=== PATIENT | female | born 1945 | race African-American/Black ===

== ENCOUNTER 2020-10-27 12:06 | Emergency (ER) | payer SELFPAY ==
[2020-10-27] VITALS (9 sets, daily range): BP systolic 148–170; BP diastolic 74–94; PULSE 81–91; RESP 18–20; TEMP 37.1–38.7; O2SAT 90–95; BMI 47.9
--- NOTE | 2020-10-27 12:20 | ECG_ITS ---
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 Measurements Intervals [place] Rate: 84 P: 60 WV: 206 QRS: -71 QRSD: 98 T: 62 QT: 342 QTc: 405 Interpretive Statements SINUS RHYTHM LEFT AXIS DEVIATION [QRS AXIS < -30] No previous ECG available for comparison Electronically Signed On 10-27-2020 19:20:47 CDT by Trisha Perkins M.D. [id number]
[2020-10-27 12:32] LABS: Basophils % 0.2 %; Hematocrit 46.9 % (37.0-47.0); Hemoglobin 15.2 g/dL (11.5-15.3); Lymphocytes # 2.5 10^3/uL (0.8-4.8); Lymphocytes % 49.7 %; Mean Corpuscular HGB Conc 32.4 g/dL (30.0-36.0); Mean Corpuscular Hemoglobin 29.6 pg (28.0-34.0); Mean Corpuscular Volume 91.4 fl (81-99); Monocytes # 0.3 10^3/uL (0.2-0.9); Monocytes % 6.6 %; Neutrophils # 2.15 10^3/uL (1.8-7.7); Neutrophils % 43.3 %; Nucleated Red Blood Cells % 0 %; Platelet Count 186 10^3/cmm (130-400); Red Blood Count 5.13 10^6/uL (4.1-5.3); Red Cell Distribution Width 15.4 % (12.1-15.1)
[2020-10-27] MEDS: sodium chloride 0.9% 500 ML IV (13:11)
[2020-10-27] MEDS: acetaminophen 500 mg Tablet PO (13:11)
[2020-10-27 13:18] LABS: Add Urine Microscopic? NO; Charge for UA Resulting for Rev
[2020-10-27 13:24] LABS: Bilirubin Urine 1+ (Negative); Blood Urine Neg (Negative); Glucose Urine UA Norm (Normal); Ketones Urine 2+ (Negative); Leukocyte Esterase Urine Negative (Negative); Nitrate Urine Negative (Negative); Protein Urine Neg (Negative); Urine Appearance Clear (CLEAR); Urine Color Dark Yellow (Yellow); Urobilinogen Urine 1 mg/dL (Negative); pH Urine 6.5 (5-7)
--- NOTE | 2020-10-27 13:27 | CT_ITS ---
WS: [id number] CT LUMBAR SPINE with contrast. HISTORY: Pain, fever and weakness. TECHNIQUE: Contiguous 2.5 mm axial imaging performed from T12 through the mid sacral level. Bone and soft tissue windows reviewed. Sagittal and coronal reformats are submitted and reviewed. Contrast: Visipaque 95 mL IV. DLP: 2971.[address] scans at [facility] use at least one of these dose optimization techniques: automated e xposure control; mA and/or kV adjustment per patient size (includes targeted exams where dose is matc hed to clinical indication); or iterative reconstruction. COMPARISON: None available. Posterior lumbar alignment is normal. No fractures. Hemangioma at L4. L1-L2: Mild disc bulging with no stenosis. L2-L3: Mild disc bulging and ligamentum flavum hypertrophy. No stenosis. L3-L4: Mild central and foraminal stenosis due to ligamentum flavum hypertrophy and disc bulging. L4-L5: Diffuse annular disc bulging with moderate ligamentum flavum hypertrophy and facet arthritis. Mild central and foraminal stenosis. L5-S1: Broad-based disc bulging causing mild contact on the LEFT S1 nerve root and narrowing of the s ubarticular recess. No enhancing soft tissue masses. The uterus is slightly enlarged and bulbous. No free fluid in the pelvis. CT/CT lumbar spine w con [id number] IMPRESSION: 1. No soft tissue masses or enhancement in the lumbar spine. 2. Mild contact on the LEFT S1 nerve root and narrowing of the LEFT L5-S1 suba rticular recess. 3. Mild central and bilateral foraminal stenosis at L3-4 and L4-5.
[2020-10-27 13:48] LABS: Alanine Aminotransferase 32 U/L (0-33); Albumin Level 3.4 g/dL (3.5-5.2); Alkaline Phosphatase 74 IU/L (35-105); Anion Gap 14.4 (5-19); Aspartate Amino Transferase 58 U/L (0-32); Blood Urea Nitrogen 10 mg/dL (8-23); Calcium 8.4 mg/dL (8.5-10.5); Carbon Dioxide 27 mmol/L (22-29); Chloride 98 mmol/L (98-107); Glucose 90 mg/dL (65-115); Lipase 19 U/L (13-60); Osmolality Calculated 281 mOsm/kg (285-295); Potassium 3.4 mmol/L (3.5-5.1); Sodium 136 mmol/L (136-145); Total Bilirubin 0.3 mg/dL (0.15-1.2); Total Protein 7.4 g/dL (6.6-8.7)
--- NOTE | 2020-10-27 13:55 | W.ED.GENADLT ---
HPI - General Adult General: Chief complaint: Fever Stated complaint: DEHYDRATION/ DIZZINESS/ TEMP Time Seen by Provider: 10/27/20 12:07 History of Present Illness: HPI narrative: Patient is a 75-year-old female with exposure to Covid patient who presents the emergency room with concerns of dehydration, cough, not feeling well and polyuria at home x 1 week. Patient tells me she has difficulty controlling her urine. Denies any dysuria. Denies any nausea/vomiting, abdominal complaints, bowel incontinence, melena/hematochezia or diarrhea. Patient has no chest pain shortness breath palpitation. Reports subjective fever at home. Of note, patient reports atraumatic back pain in the lumbar sacral area x1 week. Patient denies any new vaginal discharge, hematuria, groin pain, saddle anesthesia, IV drug use, history of transplant or diabetes. Onset: 1 week ago Duration:1 week Location:home Severity:moderate Review of Systems Narrative: Constitutional: No fever, no chills. HEENT: No vision changes CV: No chest pain, no palpitations PULM: no cough, no dyspnea. GI: No abdominal pain, no N/V/D. : No dysuria, +polyuria MSKEL: No muscle pain SKIN: No new rashes, no lesions. NEURO: No headache, no focal weakness. HEME: No visible bruises PSYCH: Normal mood BACK: +lumbar sacral back pain [facility] ED Female Reproductive History: Date of last menstrual period: 05/08/20 Physical Exam Narrative: EXAM NARRATIVE: Head: Atraumatic Eyes: PERRL, conjunctiva without injection ENT: Mucous membrane moist NECK: Supple, ROM intact LUNGS: LCTAB, no crackles/rhonchi CV: RRR ABDOMEN: Soft, nontender in all quadrants EXTREMITY: Normal ROM, 5/5 strengths in the extremities SKIN: No rash or erythema NEURO: Awake and alert, no focal motor deficits PSYCH: Normal mood and affect : No saddle anethesia BACK: +mild midline tenderness in the sacral area without any fluctance/induration/erythema Course Vital Signs: Vital signs: Vital Signs Temperature 98.8 F 10/27/20 17:13 Pulse Rate 90 10/27/20 17:13 Respiratory Rate 18 10/27/20 17:13 Blood Pressure 148/74 10/27/20 17:13 Pulse Oximetry 94 10/27/20 17:13 MDM - General Adult MDM Narrative: Medical decision making narrative: 75-year-old female with exposure to Covid who presents the emergency room with concerns of dehydration, generalized weakness, cough not feeling well and polyuria at home x1 week. On exam, patient is hemodynamically stable satting well in the emergency room. Patient has no focal findings on exam other than mild tenderness to palpation in the sacral area. Patient has no signs of spinal cord compression. It is unclear what is the source of polyuria. Patient has no history of diabetes. Glucose within normal limit to day. Cr is noted to be mildly elevated 1.1 but was tolerating PO. CT lumbar/sacral spine did not show any signs of acute infection. At the present time, I do not suspect epidural abscess as the patient does not have any bowel symptoms or saddle anesthesia or leg weakness. Covid test positive today. Given the fact the patient tolerated p.o. and continues to satting >95% on RA while sitting and occasionally dip to the 94% with movement, patient will be discharged home for symptomatic evaluation of Covid. We performed a bedside respiratory therapy evaluation to see whether patient qualifies for home oxygen but patient does not. Disposition: Discharge. Come back to the emergency room if your symptoms worsen, have any shortness of breath, fever/chills, dehydration, inability tolerate p.o., any difficulty breathing, or any new or concerning complaints. Lab Data: Labs: Lab Results 10/27/20 10/27/20 10/27/20 Range/Units 10:50 10:50 12:40 WBC 5.0 (4.0-10.0) 10^3/ uL RBC 5.13 (4.1-5.3) 10^6/u L Hgb 15.2 (11.5-15.3) g/dL Hct 46.9 (37.0-47.0) % MCV 91.4 (81-99) fl MCH 29.6 (28.0-34.0) pg MCHC 32.4 (30.0-36.0) g/dL RDW 15.4 H (12.1-15.1) % Plt Count 186 (130-400) 10^3/c mm MPV 10.0 (7.4-10.4) fL Neut % (Auto) 43.3 % Lymph % (Auto) 49.7 % [place] % (Auto) 6.6 % Eos % (Auto) 0.0 % Baso % (Auto) 0.2 % Neut # (Auto) 2.15 (1.8-7.7) 10^3/u L Lymph # (Auto) 2.5 (0.8-4.8) 10^3/u L [place] # (Auto) 0.3 (0.2-0.9) 10^3/u L Eos # (Auto) 0.0 (0.0-0.8) 10^3/u L Baso # (Auto) 0.0 (0.0-0.1) 10^3/u L Nucleated RBC % (a uto) 0 % Nucleated RBCs # 0.0 /100WBC Sodium Cancelled Potassium Cancelled Chloride Cancelled Carbon Dioxide Cancelled Anion Gap Cancelled BUN Cancelled Creatinine Cancelled GFR Calculation Cancelled Glucose Cancelled Calculated Osmolal ity Cancelled Calcium Cancelled Total Bilirubin Cancelled AST Cancelled ALT Cancelled Alkaline Phosphata se Cancelled Total Protein Cancelled Albumin Cancelled Globulin Cancelled Lipase Cancelled Urine Color (Yellow) Urine Appearance (CLEAR) Urine pH (5-7) Ur Specific Gravit y (1.005-1.030) Urine Protein (Negative) Urine Glucose (UA) (Normal) Urine Ketones (Negative) Urine Blood (Negative) Urine Nitrate (Negative) Urine Bilirubin (Negative) Urine Urobilinogen (Negative) mg/dL Ur Leukocyte Renetta ase (Negative) SARS-CoV-2 Ag (Rap id) Positive H (Negative) 10/27/20 10/27/20 Range/Units 13:09 13:14 WBC (4.0-10.0) 10^3/ uL RBC (4.1-5.3) 10^6/u L Hgb (11.5-15.3) g/dL Hct (37.0-47.0) % MCV (81-99) fl MCH (28.0-34.0) pg MCHC (30.0-36.0) g/dL RDW (12.1-15.1) % Plt Count (130-400) 10^3/c mm MPV (7.4-10.4) fL Neut % (Auto) % Lymph % (Auto) % [place] % (Auto) % Eos % (Auto) % Baso % (Auto) % Neut # (Auto) (1.8-7.7) 10^3/u L Lymph # (Auto) (0.8-4.8) 10^3/u L [place] # (Auto) (0.2-0.9) 10^3/u L Eos # (Auto) (0.0-0.8) 10^3/u L Baso # (Auto) (0.0-0.1) 10^3/u L Nucleated RBC % (a uto) % Nucleated RBCs # /100WBC Sodium 136 Potassium 3.4 L Chloride 98 Carbon Dioxide 27 Anion Gap 14.4 BUN 10 Creatinine 1.1 H GFR Calculation Not Reportable Glucose 90 Calculated Osmolal ity 281 L Calcium 8.4 L Total Bilirubin 0.3 AST 58 H ALT 32 Alkaline Phosphata se 74 Total Protein 7.4 Albumin 3.4 L Globulin 4.0 Lipase 19 Urine Color Dark yellow (Yellow) Urine Appearance Clear (CLEAR) Urine pH 6.5 (5-7) Ur Specific Gravit y 1.010 (1.005-1.030) Urine Protein Neg (Negative) Urine Glucose (UA) Norm (Normal) Urine Ketones 2+ H (Negative) Urine Blood Neg (Negative) Urine Nitrate Negative (Negative) Urine Bilirubin 1+ H (Negative) Urine Urobilinogen 1 H (Negative) mg/dL Ur Leukocyte Renetta ase Negative (Negative) SARS-CoV-2 Ag (Rap id) (Negative) Imaging Data^: Other Imaging: Radiologist's impression: [address] [id number] Scan ReportSigned Patient: Tremayne Machado #: [id number]: 7Acct#:[id number]/Sex: 75 / FADM Date: 10/27/20Loc: ERRoom/Bed:Attending Dr: Ordering Provider/Ordering MD: Elba Delatorre MD Date of Service: 10/27/20 Procedure(s): CT lumbar spine w con [id number] Accession Number(s): [id number] Report Number: [id number] WS: [id number] CT LUMBAR SPINE with contrast. HISTORY: Pain, fever and weakness. TECHNIQUE: Contiguous 2.5 mm axial imaging performed from T12 through the mid sacral level. Bone and soft tissue windows reviewed. Sagittal and coronal reformats are submitted and reviewed. Contrast: Visipaque 95 mL IV. DLP: 2971.[address] scans at [facility] use at least one of these dose optimization techniques: automated exposure control; mA and/or kV adjustment per patient size (includes targeted exams where dose is matched to clinical indication); or iterative reconstruction. COMPARISON: None available. Posterior lumbar alignment is normal. No fractures. Hemangioma at L4. L1-L2: Mild disc bulging with no stenosis. L2-L3: Mild disc bulging and ligamentum flavum hypertrophy. No stenosis. L3-L4: Mild central and foraminal stenosis due to ligamentum flavum hypertrophy and disc bulging. L4-L5: Diffuse annular disc bulging with moderate ligamentum flavum hypertrophy and facet arthritis. Mild central and foraminal stenosis. L5-S1: Broad-based disc bulging causing mild contact on the LEFT S1 nerve root and narrowing of the subarticular recess. No enhancing soft tissue masses. The uterus is slightly enlarged and bulbous. No free fluid in the pelvis. CT/CT lumbar spine w con [id number] IMPRESSION: 1. No soft tissue masses or enhancement in the lumbar spine. 2. Mild contact on the LEFT S1 nerve root and narrowing of the LEFT L5-S1 subarticular recess. 3. Mild central and bilateral foraminal stenosis at L3-4 and L4-5. Dictated By:Carin Mcneil DOSigned By:Carin Mcneil DOSigned Date/Time:10/27/20 1502DD/ 1424 [facility] [place] [id number] ReportSigned Patient: Tremayne Machado #: [id number]: 1945cct#:[id number]/Sex: 75 / FADM Date: 10/27/20Loc: ERRoom/Bed:Attending Dr: Ordering Provider/Ordering MD: Elba Delatorre MD Date of Service: 10/27/20 Procedure(s): XR chest 1V portable [id number] Accession Number(s): [id number] Report Number: [id number] WS: [id number] XR chest 1V portable [id number] REASON FOR EXAM: cough, dyspnea FINDINGS: Moderate tortuosity and ectasia of the thoracic aorta without focal aneurysmal dilatation. The heart is mildly enlarged. Calcified granulomatous disease in both hemithoraces. No active pulmonary parenchymal or pleural disease is identified. Significant degenerative spondylosis in the mid and lower thoracic spine. Mild to moderate degenerative change in the shoulder joints. No focal bone lesion. XR/XR chest 1V portable [id number] IMPRESSION: No acute chest abnormality. Dictated By:Dex Hardin Jr MDSigned By:Dex Hardin Jr MDSigned Date/Time:10/27/20 1422DD/ 1420 Discharge Plan Discharge Patient Disposition: Home Clinical Impression: COVID-19, Polyuria, Generalized weakness Condition: Stable Prescriptions: New Zofran 4 mg tablet 4 mg PO TID PRN (Reason: nausea and vomiting) 4 Days Qty: 12 RF: 0 acetaminophen 500 mg tablet 500 mg PO Q6H PRN (Reason: pain) 7 Days Qty: 28 RF: 0 No Action losartan See Rx Instructions .ROUTE .COMPLEX RF: 0 Discharge Orders: Discharge ED (Routine); Ordered 10/27/20 Ordered By: Elba Delatorre Other Ambulatory Orders: Request for MCA (Urgent) Timeframe: 1 Day Facility: [facility] - Location: Outpatient Surgical Services Ordered By: Elba Delatorre Discharge Diet: Advance as tolerated Discharge Activity: Resume usual activity Patient Instructions: Severe Acute Respiratory Syndrome (SARS) (ED) Activity Restrictions/Additional Instructions: Come back to the emergency room if your symptoms worsen, have any shortness of breath, fever/chills, dehydration, inability tolerate food or drinks, any difficulty breathing, or any new or concerning complaints. 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
--- NOTE | 2020-10-27 13:59 | XR_ITS ---
WS: [id number] XR chest 1V portable [id number] REASON FOR EXAM: cough, dyspnea FINDINGS: Moderate tortuosity and ectasia of the thoracic aorta without focal aneurysmal dilatation. The heart is mildly enlarged. Calcified granulomatous disease in both hemithoraces. No active pulmonary parenchymal or pleural dise ase is identified. Significant degenerative spondylosis in the mid and lower thoracic spine. Mild to moderate degenerati ve change in the shoulder joints. No focal bone lesion. XR/XR chest 1V portable [id number] IMPRESSION: No acute chest abnormality.
[2020-10-27 14:06] LABS: SARS Covid-2 Antigen Positive (Negative)
[2020-10-27] MEDS: iodixanol 320 mg/mL 100mL Btl IV (14:18)
[2020-10-27] MEDS: dexamethasone 4 mg/mL INJ 6 MG IVP (14:34)
--- NOTE | 2020-10-27 17:11 | PC.NURSE ---
patient does not qualify for home O2 per RT Home O2 test. Pt remains 93-96% on room air. Pt educated on monitoring O2 during COVID isolation and return as needed.
== END 2020-10-27 17:30 | disposition home or self-care (01) ==
PROVIDERS: Emergency Provider Emergency Medicine
DX: U07.1 COVID-19 (principal); R35.8 Other polyuria; R53.1 Weakness
CPT/HCPCS: 71045; 72132; 80053; 81003; 83690; 85025; 87426; 93005; 96361; 96374; 99284; J1100; J7040; Q9967

== ENCOUNTER 2020-10-30 19:42 | Emergency (ER) | payer SELFPAY ==
[2020-10-30 19:25] VITALS: BP 183/103; PULSE 87; RESP 18; TEMP 36.3; O2SAT 96; BMI 47.9
[2020-10-30 19:35] VITALS: O2SAT 95
--- NOTE | 2020-10-30 19:47 | XRR_ITS ---
PROCEDURE INFORMATION: Exam: XR Chest Exam date and time: 10/30/2020 7:47 PM Age: 75 years old Clinical indication: Shortness of breath; Additional info: Covid TECHNIQUE: Imaging protocol: XR of the chest. Views: 1 view. Total images: 1 COMPARISON: CR XR chest 1V portable [id number] 10/27/2020 2:09 PM FINDINGS: Lungs: Bilateral, predominantly peripheral, patches of ground-glass interstitial lung disease opacification consistent with active interstitial pneumonitis. Overall constellation of findings would be consistent with Covid-19 pneumonitis. Pleural spaces: No visible pleural effusion. No pneumothorax. Heart/Mediastinum: Cardiac structures and configuration with cardiomegaly. Arteriosclerosis. Bones/joints: Unremarkable. Other findings: Obesity. XR/XR chest 1V portable [id number] IMPRESSION: Bilateral, predominantly peripheral, patches of ground-glass interstitial lung disease opacification consistent with active interstitial pneumonitis. Overall constellation of findings would be consistent with Covid-19 pneumonitis.
--- NOTE | 2020-10-30 19:48 | ECG_ITS ---
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 Measurements Intervals [place] Rate: 84 P: 39 OH: 194 QRS: -47 QRSD: 104 T: 29 QT: 345 QTc: 409 Interpretive Statements SINUS RHYTHM LEFT AXIS DEVIATION [QRS AXIS < -30] Compared to ECG 10/27/2020 12:45:24 No significant changes Electronically Signed On 10-31-2020 18:33:24 CDT by Trisha Perkins M.D. [id number]
--- NOTE | 2020-10-30 20:15 | ED_ITS ---
HPI - COVID General: Chief Complaint: COVID symptoms Stated Complaint: COVID + Triage information: Has fever, cough or shortness of breath . Exposure to COVID + person last 14 days History of Present Illness: HPI Narrative: Patient is a 75-year-old female past medical history of hypertension. She was also tested positive for Covid earlier this week. She is here with complaints of shortness of breath cough and feeling ill. She has been home when EMS arrived she was in the 80s on room air put on 4 L and got her up to 96 to 97%. States she is had very limited food and water intake but has been urinating. Endorses a subjective fever chills nausea shortness of breath and cough denies chest pain abdominal pain rash syncope altered mental status. COVID Results: SARS-CoV-2 Antigen (Rapid) Positive (Negative) H 10/27/20 12:40 10/27/20 Review of Systems General: Reports: 10 or more systems reviewed and unremarkable except in HPI and below [facility] ED Female Reproductive History: Date of last menstrual period: 05/08/20 Physical Exam Const: COMMON NORMALS: no acute distress, average body habitus, patient oriented x3, no limitations and well nourished EXAM LIMITATIONS: no altered mental status GENERAL APPEARANCE: cooperative and well developed; not comfortable, not in distress, not anxious, not ill appearing, does not appear older than stated age and not well hydrated HENMT: COMMON NORMALS: normocephalic and atraumatic HEAD & SCALP: normocephalic and atraumatic Eye: COMMON NORMALS: Equal, round and reactive pupils present and EOMs intact bilaterally PUPIL: Yes Equal, round and reactive pupils present Resp: COMMON NORMALS: normal respiratory effort, No retractions, No use of accessory muscles and clear to auscultation bilaterally AUSCULTATION: clear to auscultation bilaterally Cardio: COMMON NORMALS: regular rate, regular rhythm, S1 normal heart sound present and S2 normal heart sound present RATE: regular rate RHYTHM: regular rhythm HEART SOUNDS: S1 normal heart sound present and S2 normal heart sound present GI: COMMON NORMALS: Normal to inspection, nondistended, normoactive bowel sounds present and Soft to palpation PALPATION: Yes Soft to palpation Extremity: COMMON NORMALS: normal to inspection, full ROM and no clubbing, cyanosis or edema Neuro: COMMON NORMALS: patient oriented x3, CN's II-XII intact bilaterally, moves all extremities, no focal motor deficits and no sensory deficits noted Psych: COMMON NORMALS: mental status grossly normal and Normal thought process present THOUGHT PROCESS: Normal thought process present Skin: COMMON NORMALS: no rashes or lesions noted GENERAL SKIN EXAM: no rashes or lesions noted Course 2 ED course: Patient requiring 4 L of oxygen. Will check labs on her to see if we need to do any further interventions including D-dimer to see if she would possibly need chest angiogram. We may be able to send her home on home oxygen depending on her lab work-up. Will check ABG as well she is in no acute respiratory distress comfortable on 4 L of oxygen saturating well Patient is needing 6 L of oxygen after getting up just to sit bedside commode. She was considerably short of breath and having increased work of breathing. Laboratory results look like somebody with moderate Covid infection. She does an elevated D-dimer but would not consider this high enough to do a CT angiogram. Elevated CK rest for Covid labs are elevated as well. She is not initially acute respiratory distress and still does not need high flow or positive pressure ventilation but I do think that she needs to be admitted for steroids and remdesivir Vital Signs: Vital signs: Vital Signs Temperature 97.3 F L 10/30/20 19:25 Pulse Rate 87 10/30/20 19:25 Respiratory Rate 18 10/30/20 19:25 Blood Pressure 183/103 10/30/20 19:25 Pulse Oximetry 95 10/30/20 19:35 MDM - COVID MDM Narrative: Medical decision making narrative: Pulmonary embolism, Covid, pneumonia, cardiac tamponade Differential Diagnosis: Differential diagnosis: Likely COVID 19, influenza, other viral infection, pneumonia, copd exacerbation, pulmonary embolism, NSTEMI/STEMI and CHF exacerbation Medical Records: Attestation: I reviewed the patient's medical records. Lab Data: Attestation: I reviewed the patient's lab results. Labs: Lab Results 10/30/20 10/30/20 10/30/20 Range/Units 20:08 20:20 20:20 WBC 7.7 (4.0-10.0) 10^3/ uL RBC 4.95 (4.1-5.3) 10^6/u L Hgb 14.6 (11.5-15.3) g/dL Hct 44.5 (37.0-47.0) % MCV 89.9 (81-99) fl MCH 29.5 (28.0-34.0) pg MCHC 32.8 (30.0-36.0) g/dL RDW 15.2 H (12.1-15.1) % Plt Count 234 (130-400) 10^3/c mm MPV 9.4 (7.4-10.4) fL Neut % (Auto) 70.0 % Lymph % (Auto) 26.6 % [place] % (Auto) 2.9 % Eos % (Auto) 0.0 % Baso % (Auto) 0.1 % Neut # (Auto) 5.36 (1.8-7.7) 10^3/u L Lymph # (Auto) 2.0 (0.8-4.8) 10^3/u L [place] # (Auto) 0.2 (0.2-0.9) 10^3/u L Eos # (Auto) 0.0 (0.0-0.8) 10^3/u L Baso # (Auto) 0.0 (0.0-0.1) 10^3/u L Nucleated RBC % (a uto) 0 % Nucleated RBCs # 0.0 /100WBC PT 15.00 H (12.1-14.9) SECO NDS INR 1.14 (0.8-1.2) APTT 30.0 (23.9-36.7) SECO NDS D-Dimer 1.23 H (0-0.59) ug/mIFE U Specimen Type Arterial Sample Site Radial, right ABG pH 7.46 H (7.35-7.45) ABG pCO2 39.5 (35-45) mmHg ABG pO2 61.9 L (80.0-100.0) mmH g ABG HCO3 27.8 H (22-26) mmol/L ABG Base Excess 3.6 H (-2.0-2.0) mmol/ L Siva Test Pos Hematocrit 47.6 H (37-47) % O2 Delivery Device Nc O2 Liters/Min 4.0 % Machine Rigger ID Tamma Sodium (136-145) mmol/L Potassium (3.5-5.1) mmol/L Chloride (98-107) mmol/L Carbon Dioxide (22-29) mmol/L Anion Gap (5-19) BUN (8-23) mg/dL Creatinine (0.5-0.9) mg/dL GFR Calculation Glucose (65-115) mg/dL Calculated Osmolal ity (285-295) mOsm/k g Lactic Acid (0.5-2.2) mmol/L Calcium (8.5-10.5) mg/dL Magnesium (1.7-2.3) mg/dL Ferritin (15-150) ng/mL Total Bilirubin (0.15-1.2) mg/dL AST (0-32) U/L ALT (0-33) U/L Alkaline Phosphata se (35-105) IU/L Lactate Dehydrogen ase (135-214) U/L Creatine Kinase (26-192) U/L Troponin T Gen 5 n g/L (0-10) ng/L C-Reactive Protein (0.0-4.9) mg/L Total Protein (6.6-8.7) g/dL Albumin (3.5-5.2) g/dL Globulin (1.3-4.6) g/dL Procalcitonin (0-0.5) ng/mL 10/30/20 10/30/20 10/30/20 Range/Units 20:20 20:20 20:20 WBC (4.0-10.0) 10^3/ uL RBC (4.1-5.3) 10^6/u L Hgb (11.5-15.3) g/dL Hct (37.0-47.0) % MCV (81-99) fl MCH (28.0-34.0) pg MCHC (30.0-36.0) g/dL RDW (12.1-15.1) % Plt Count (130-400) 10^3/c mm MPV (7.4-10.4) fL Neut % (Auto) % Lymph % (Auto) % [place] % (Auto) % Eos % (Auto) % Baso % (Auto) % Neut # (Auto) (1.8-7.7) 10^3/u L Lymph # (Auto) (0.8-4.8) 10^3/u L [place] # (Auto) (0.2-0.9) 10^3/u L Eos # (Auto) (0.0-0.8) 10^3/u L Baso # (Auto) (0.0-0.1) 10^3/u L Nucleated RBC % (a uto) % Nucleated RBCs # /100WBC PT (12.1-14.9) SECO NDS INR (0.8-1.2) APTT (23.9-36.7) SECO NDS D-Dimer (0-0.59) ug/mIFE U Specimen Type Sample Site ABG pH (7.35-7.45) ABG pCO2 (35-45) mmHg ABG pO2 (80.0-100.0) mmH g ABG HCO3 (22-26) mmol/L ABG Base Excess (-2.0-2.0) mmol/ L Siva Test Hematocrit (37-47) % O2 Delivery Device O2 Liters/Min % Machine Rigger ID Sodium 137 (136-145) mmol/L Potassium 3.2 L (3.5-5.1) mmol/L Chloride 98 (98-107) mmol/L Carbon Dioxide 29 (22-29) mmol/L Anion Gap 13.2 (5-19) BUN 13 (8-23) mg/dL Creatinine 1.1 H (0.5-0.9) mg/dL GFR Calculation Not Reportable Glucose 95 (65-115) mg/dL Calculated Osmolal ity 284 L (285-295) mOsm/k g Lactic Acid 0.9 (0.5-2.2) mmol/L Calcium 8.7 (8.5-10.5) mg/dL Magnesium 2.1 (1.7-2.3) mg/dL Ferritin 483 H (15-150) ng/mL Total Bilirubin 0.4 (0.15-1.2) mg/dL AST 51 H (0-32) U/L ALT 32 (0-33) U/L Alkaline Phosphata se 63 (35-105) IU/L Lactate Dehydrogen ase 321 H (135-214) U/L Creatine Kinase 662 H* (26-192) U/L Troponin T Gen 5 n g/L 16 H (0-10) ng/L C-Reactive Protein 168.9 H (0.0-4.9) mg/L Total Protein 6.8 (6.6-8.7) g/dL Albumin 3.4 L (3.5-5.2) g/dL Globulin 3.4 (1.3-4.6) g/dL Procalcitonin 0.86 H (0-0.5) ng/mL COVID Results: SARS-CoV-2 Antigen (Rapid) Positive (Negative) H 10/27/20 12:40 10/27/20 Discharge Plan Discharge Prescriptions: No Action losartan See Rx Instructions .ROUTE .COMPLEX RF: 0 Zofran 4 mg tablet 4 mg PO TID PRN (Reason: nausea and vomiting) 4 Days Qty: 12 RF: 0 acetaminophen 500 mg tablet 500 mg PO Q6H PRN (Reason: pain) 7 Days Qty: 28 RF: 0 Coding Level of Care Code ED [employer] Monitoring Technician for Hoang Fwd Exam Comprehensive
[2020-10-30 20:16] LABS: ABG PCO2 39.5 mmHg (35-45); ABG PH Result 7.46 (7.35-7.45); Arterial Blood Gas Hematocrit 47.6 % (37-47); Base Excess ABG 3.6 mmol/L (-2.0-2.0); Blood Gas Allen Test Pos; Blood Gas Sample Site Radial, right; Blood Gas Sample Type Arterial; HCO3 ABG 27.8 mmol/L (22-26); Oxygen Device NC; PO2 ABG 61.9 mmHg (80.0-100.0)
[2020-10-30 20:27] LABS: Basophils % 0.1 %; Hematocrit 44.5 % (37.0-47.0); Hemoglobin 14.6 g/dL (11.5-15.3); Lymphocytes % 26.6 %; Mean Corpuscular HGB Conc 32.8 g/dL (30.0-36.0); Mean Corpuscular Hemoglobin 29.5 pg (28.0-34.0); Mean Corpuscular Volume 89.9 fl (81-99); Mean Platelet Volume 9.4 fL (7.4-10.4); Monocytes # 0.2 10^3/uL (0.2-0.9); Monocytes % 2.9 %; Neutrophils # 5.36 10^3/uL (1.8-7.7); Nucleated Red Blood Cells % 0 %; Platelet Count 234 10^3/cmm (130-400); Red Blood Count 4.95 10^6/uL (4.1-5.3); Red Cell Distribution Width 15.2 % (12.1-15.1); White Blood Count 7.7 10^3/uL (4.0-10.0)
[2020-10-30 20:44] LABS: INR 1.14 (0.8-1.2)
[2020-10-30 20:47] LABS: D Dimer 1.23 ug/mIFEU (0-0.59)
[2020-10-30 20:48] LABS: Alanine Aminotransferase 32 U/L (0-33); Albumin Level 3.4 g/dL (3.5-5.2); Alkaline Phosphatase 63 IU/L (35-105); Anion Gap 13.2 (5-19); Aspartate Amino Transferase 51 U/L (0-32); Blood Urea Nitrogen 13 mg/dL (8-23); C Reactive Protein 168.9 mg/L (0.0-4.9); Calcium 8.7 mg/dL (8.5-10.5); Carbon Dioxide 29 mmol/L (22-29); Chloride 98 mmol/L (98-107); Ferritin 483 ng/mL (15-150); Globulin 3.4 g/dL (1.3-4.6); Glucose 95 mg/dL (65-115); Lactate Dehydrogenase 321 U/L (135-214); Magnesium 2.1 mg/dL (1.7-2.3); Osmolality Calculated 284 mOsm/kg (285-295); Potassium 3.2 mmol/L (3.5-5.1); Sodium 137 mmol/L (136-145); Total Bilirubin 0.4 mg/dL (0.15-1.2); Total Protein 6.8 g/dL (6.6-8.7)
[2020-10-30 20:49] LABS: Creatine Phosphokinase 662 U/L (26-192); Lactic Sepsis W/Reflex 0.9 mmol/L (0.5-2.2); Troponin T (5th) Once 16 ng/L (0-10)
[2020-10-30 20:53] LABS: Procalcitonin 0.86 ng/mL (0-0.5)
[2020-10-30 21:04] VITALS: BP 189/88; PULSE 89; RESP 38; TEMP 38.4; O2SAT 91
[2020-10-30] MEDS: dexamethasone 10 mg/mL INJ 6 MG IVP (22:12)
[2020-10-30] MEDS: acetaminophen 325 mg Tablet 650 MG PO (22:12)
--- NOTE | 2020-10-30 23:26 | PM.HP ---
Providers/Chief Complaint Chief Complaint: COVID + History of Present Illness This will serve as a consult note, if patient is transferred to higher level of care, patient requires ICU bed, currently her ICU is full Patrick Machado is a 75 year old female with a past medical history of CAD, CHF, hypertension, history of exploratory laparotomy for a mass in her stomach which was benign according to patient, history of polypectomy which were benign, who presents to [facility] due to complaints of shortness of breath. Patient tells me that she has roughly a 2-week history of shortness of breath, cough, fatigue, fevers, malaise, generalized muscle aches. She denies history of COPD, no history of smoking, she tells me that over the week her shortness of breath has progressed, gotten increasingly worse with exertion, productive cough, she presented to the emergency room a few days ago was diagnosed with COVID-19, I do not see that she received a bam infusion, but was sent home. She comes back with increased symptomatology, in the emergency room she was found to be hypoxic, tachycardic, T-max 101.5, initially started off on 6 L, now rapidly progressing to 40 L 35%, she is complaining of shortness of breath, no acute respiratory distress, but does have nasal flaring, slight intercostal retractions. Chest x-ray shows diffuse groundglass opacities, concerning for acute respiratory distress syndrome and COVID-19. Creatinine 1.1. CK 662. Troponin XVI. CRP 168. Currently patient is alert oriented x3, lying on her side, on high flow, she feels a bit better, she does not have the Covid vaccination Review of Systems Const: Reports: fever(s), chills, body aches, fatigue and malaise Eyes: Denies: change in vision or blurry vision ENMT: Reports: nasal congestion; Denies: throat pain Card: Reports: dyspnea on exertion; Denies: chest pain, palpitations, irregular heart rhythm, edema, swelling of feet/ankles or lightheadedness Resp: Reports: dyspnea and productive cough; Denies: non-productive cough or wheezing GI: Denies: abdominal pain, nausea, vomiting, hematemesis, diarrhea, constipation, hematochezia or melena : Denies: flank pain, dysuria or urinary frequency Musc: Denies: neck pain, back pain, extremity pain or joint pain Skin/Breast: Denies: rash Neuro: Denies: headache(s), dizziness, vertigo or confusion Psych: Denies: depression Endo: Denies: polyuria or polydipsia Medications/Allergies Home Medications Medication Instructions Recorded Confirmed Last Taken Type acetaminophen 500 mg PO Q6H PRN 7 Days #28 tab 10/27/20 Unknown Rx losartan See Rx Instructions .ROUTE .COMPLEX 10/27/20 10/27/20 Unknown History ondansetron HCl [Zofran] 4 mg PO TID PRN 4 Days #12 tab 10/27/20 Unknown Rx Allergies Allergy/AdvReac Type Severity Reaction Status Date / Time No Known Allergies Allergy Unverified 10/27/20 14:00 PFSH Acute PFSH: Medical History (Updated 10/30/20 @ 23:32 by Clemente Xiong MD) History of CHF (congestive heart failure) History of coronary artery disease History of hypertension Surgical History (Updated 10/30/20 @ 23:30 by Clemente Xiong MD) History of colonoscopy History of exploratory laparotomy Family History (Updated 10/30/20 @ 23:30 by Clemente Xiong MD) Mother Breast cancer Father Cancer Social History (Updated 10/30/20 @ 23:30 by Clemente Xiong MD) Smoking and tobacco status: never smoked Alcohol intake: never Substance/Drug Use: never Female Reproductive History: Date of last menstrual period: 05/08/20 Vitals/I&O/Wt Last Vital Signs Temp 101.1 F H 10/30/20 21:04 Pulse 89 10/30/20 21:04 Resp 38 H 10/30/20 21:04 BP 189/88 10/30/20 21:04 Pulse Ox 91 10/30/20 21:04 Weight last 48 hrs Weight 134.717 kg Data : 10/30/20 20:20 10/30/20 20:20 A&P Assessment and plan (1) Acute respiratory failure with hypoxia: -Secondary to COVID-19 pneumonia, with evidence of acute respiratory distress syndrome -Patient has a high risk of intubation in the next 24-48 hrs Plan: -Continue high flow, wean oxygen as tolerated -Blood cultures, urine cultures, sputum cultures, urine bacterial antigens, MRSA nares -Start broad-spectrum antibiotic therapy vancomycin, cefepime for secondary bacterial prophylaxis -We will obtain CT angiogram of the chest -We will obtain a cardiac echocardiogram, evaluate BNP -Start remdesivir -Decadron -Vitamin C, zinc, vitamin D - if patient is above cultures unremarkable, CT angiogram of the chest is unremarkable for focal pneumonia, then she is a candidate for Actemra which I would initiate soon as feasible -Incentive spirometer flutter valve -Patient is a high risk of intubation the next 24-48 hours, she was made aware of this, would consult pulmonary -pepcid for GI prophylaxis -Lovenox for DVT prophylaxis -Full code -She is not vaccinated Status: Acute (2) Acute respiratory distress syndrome: Status: Acute (3) Pneumonia due to COVID-19 virus: Status: Acute (4) Rhabdomyolysis: Status: Acute (5) SERENA (acute kidney injury): Status: Acute (6) Transaminitis: Status: Acute Attestations Medical Necessity Statement*: Patient requires hospitalization, inpatient, given the 2 midnights, for acute respiratory failure with hypoxia sec to COVID-19, COVID-19 pneumonia, acute respiratory distress syndrome Coding Level of Care Code Acute [employer] [facility] Diagnoses Acute respiratory failure with hypoxia J96.01 Acute respiratory distress syndrome J80 Pneumonia due to COVID-19 virus U07.1; J12.82 Rhabdomyolysis M62.82 SERENA (acute kidney injury) N17.9 Transaminitis R74.01
--- NOTE | 2020-10-30 23:27 | CTR_ITS ---
PROCEDURE INFORMATION: Exam: CTA Chest With Contrast Exam date and time: 10/30/2020 11:27 PM Age: 75 years old Clinical indication: Fever and shortness of breath; Additional info: Covid 19, elevated d dimer TECHNIQUE: Imaging protocol: Computed tomographic angiography of the chest with contrast. 3D rendering (Not supervised by radiologist): MIP and/or 3D reconstructed images were created by the technologist. Radiation optimization: All CT scans at this facility use at least one of these dose optimization techniques: automated exposure control; mA and/or kV adjustment per patient size (includes targeted exams where dose is matched to clinical indication); or iterative reconstruction. Contrast material: VISI 320; Contrast volume: 132 ml; Contrast route: INTRAVENOUS (IV); COMPARISON: CR (CHEST, ) 10/30/2020 7:59 PM RADIATION DOSE METRICS: Total DLP (mGy-cm): 1561.81 FINDINGS: Pulmonary arteries: Normal. No pulmonary emboli. Aorta: Unremarkable. No aortic aneurysm. No aortic dissection. Great vessels off aortic arch: Retroesophageal course of the right subclavian artery. Lungs: Scattered patchy peripheral irregular ground-glass opacities throughout both lungs. Negative for endobronchial obstruction. No bronchiectasis. Pleural spaces: Unremarkable. No pneumothorax. No pleural effusion. Heart: Mild multichamber cardiac enlargement. Negative for pericardial effusion. Lymph nodes: Unremarkable. No enlarged lymph nodes. Bones/joints: Unremarkable. No acute fracture. Soft tissues: Unremarkable. CT/CT angio chest PE protcl [id number] IMPRESSION: 1. Negative for pulmonary embolism. 2. Patchy widely distributed mostly peripheral airspace disease. 3. Commonly reported imaging features of COVID-19 pneumonia are present. Other processes such as influenza pneumonia and organizing pneumonia, as can be seen with drug toxicity and connective tissue disease, can cause a similar imaging pattern. (Reference: Franky) REFERENCES: Franky Zhang, et al., [employer] Society of [place] Expert Consensus Statement on Reporting Chest CT Findings Related to COVID-19. Endorsed by the Society of [employer]acic Radiology, the [place] [employer], and RSNA. Published May 09, 2019. Radiation Dose CTDIVOL = (mGy): DLP = 1561.81 (mGy-cm)
[2020-10-30 23:53] LABS: NT Pro B Type Natriuretic Pept 66 pg/mL (0-125)
[2020-10-31] MEDS: iodixanol 320 mg/mL 100mL Btl IV ×2 (00:06→00:07)
[2020-10-31] MEDS: remdesivir 200 MG in sodium chloride 0.9% (100 ml) 60 ML 100 MG IV (00:12)
[2020-10-31] MEDS: cefepime 2,000 MG in sodium chloride 0.9% (plus) 50 ML 100 MG IV (00:30)
[2020-10-31] MEDS: enoxaparin 40 mg/0.4 mL Syringe SUBCUT (00:31)
[2020-10-31] MEDS: TRAMadol 50 mg Tablet PO (00:34)
[2020-10-31] MEDS: vancomycin 1,000 MG in sodium chloride 0.9% 250 ML 250 MG IV (01:13)
[2020-10-31] MEDS: lidocaine 1% 5 ML in potassium chloride premix 100 ML 25 ML IV (01:15)
[2020-10-31 01:35] VITALS: BP 173/105; PULSE 75; RESP 16; O2SAT 96
== END 2020-10-31 02:35 | disposition admitted as inpatient to this hospital (09) ==
PROVIDERS: Family Medicine; Emergency Provider Family Medicine
DX: U07.1 COVID-19 (principal)
CPT/HCPCS: 36415; 36600; 51702; 71045; 71275; 80053; 82550; 82728; 82803; 83605; 83615; 83735; 83880; 84145; 84484; 85025; 85378; 85610; 85730; 86140; 86403; 87040; 93005; 96365; 96366; 96367; 96372; 99285; J0692; J1100; J1650; J3370; J3480; J7050; Q9967

== ENCOUNTER → 2021-01-28 11:40 | Outpatient (BNVA) | payer SELFPAY | PROVIDERS: PCP Nurse Practitioner Family; Visit Provider Nurse Practitioner Family | DX: M25.531 Pain in right wrist (principal); R60.0 Localized edema; M85.831 Other specified disorders of bone density and structure, right forearm; M17.11 Unilateral primary osteoarthritis, right knee; M25.761 Osteophyte, right knee; M25.521 Pain in right elbow; M25.421 Effusion, right elbow; M77.8 Other enthesopathies, not elsewhere classified | CPT/HCPCS: 73080; 73110; 73562 ==